=== PATIENT | female | born 1945 | race Caucasian/White ===

== ENCOUNTER 2016-08-13 11:21 | Outpatient (CLI) ==
[2013-06-19 03:26] VITALS: BMI 24.9
--- NOTE | 2016-08-13 12:54 | DI ---
EXAM: CHEST FRONTAL AND LATERAL VIEWS HISTORY: Shortness of breath. COMPARISON: 08/08/2009 FINDINGS: In Heart size and mediastinal contour remain within normal limits. No acute infiltrates . Normal vascularity with no pleural fluid or pneumothorax. The bony thorax has no acute finding. S tabilization hardware lower cervical spine. IMPRESSION: No acute process.
--- NOTE | 2016-08-15 08:53 | MAMMO ---
EXAM: Digital screening mammogram HISTORY: Screening COMPARISON: 06/28/2015 FINDINGS: Digital MLO and CC views of the right and left breast were performed. There are scatter ed fibroglandular densities. Bilateral benign scattered calcifications. There is no evidence for mas s, asymmetry, distortion, or suspicious calcifications in either breast. IMPRESSION: 1. No evidence of malignancy in the right or left breast. 2. Annual screening mammogram is recommended in one year. BIRADS category 2, benign
== END 2016-08-13 11:22 | disposition home or self-care (01) ==
LOC: RAD 11:21
PROVIDERS: ATTEND Family Medicine
DX: Z12.31 Encounter for screening mammogram for malignant neoplasm of breast (principal); R06.02 Shortness of breath; E89.40 Asymptomatic postprocedural ovarian failure

== ENCOUNTER 2016-10-08 11:22 | Day surgery (SDC) | payer OTHER ==
[2013-06-19 03:26] VITALS: BMI 24.9
[2016-10-08] MEDS ORDERED: VERSED ONE (12:35)
[2016-10-08] MEDS ORDERED: DIPRIVAN 20 ML VIAL IVP ONE (12:35)
[2016-10-08] MEDS ORDERED: LIDOCAINE HCL 2% LUER-JET ONE (12:35)
[2016-10-08 15:07] VITALS: TEMP 97.6
--- NOTE | 2016-10-10 10:03 | OP ---
PROCEDURE: EGD (ESOPHAGOGASTRODUODENOSCOPY) . ENDOSCOPIST: Ivan WANG M.D. INDICATION: NAUSEA AND VOMITING INSTRUMENT: [id number]. MEDICATION: PER ANESTHESIA. PROCEDURE: The patient was positioned for endoscopy. The oropharynx was sprayed with Cetacaine spray and the endoscope was advanced through the bite block into the esophagus and from there advanced to the duodenum. The duodenum was normal. The pylorus was patent. The antrum is normal. Retroflex exam reveals a small hiatus hernia. The esophagus is very torturous in the distal segment. No obvious obstructing lesion. The patient tolerated the procedure without immediate complication. PLAN: 1. Would like to get a Barium Esophagram to further evaluate her symptoms 2. Would also like to get a Gastric Emptying Study 3. We will see her back in the office in four weeks. CC: Dr. Baron SOL
[2016-10-10 11:34] VITALS: BP 99/62
== END 2016-10-08 13:55 | disposition home or self-care (01) ==
LOC: SURG 11:22
PROVIDERS: ATTEND Internal Medicine Gastroenterology
DX: R11.2 Nausea with vomiting, unspecified (principal); K44.9 Diaphragmatic hernia without obstruction or gangrene; K22.8 Other specified diseases of esophagus; E11.9 Type 2 diabetes mellitus without complications
CPT/HCPCS: 82962

== ENCOUNTER 2016-10-10 09:00 | Outpatient (CLI) ==
[2013-06-19 03:26] VITALS: BMI 24.9
--- NOTE | 2016-10-10 13:43 | NM ---
EXAM: Gastric emptying study HISTORY: Vomiting COMPARISON: None. TECHNIQUE: Patient was given 2.1 mCi of technetium 99m sulfur colloid per oral mixed in scrambled eg gs. Anterior and posterior scintigraphic images of the left upper abdomen were obtained up to 4 claudia rs interval. FINDINGS: Gastric emptying half-time is 120 minutes. This is very slightly prolonged. At 1 hour, 2 hours, 3 hours and 4 hours interval, patient has emptied approximately 30%, 50%, 70% an d 87% of the gastric contents respectively. IMPRESSION: Very slightly delayed gastric emptying is identified in this patient.
== END 2016-10-10 09:01 | disposition home or self-care (01) ==
LOC: RAD 09:00
PROVIDERS: ATTEND Internal Medicine Gastroenterology
DX: R11.2 Nausea with vomiting, unspecified (principal)

== ENCOUNTER 2016-10-12 09:07 | Outpatient (CLI) ==
[2013-06-19 03:26] VITALS: BMI 24.9
--- NOTE | 2016-10-12 10:23 | DI ---
EXAM: Double contrast upper GI History: Nausea and vomiting. Technique: Patient was given gas crystals. Patient was then given oral barium and multiple spot fi lms of the esophagus, stomach and duodenum were obtained in multiple projections. Findings: A normal course and caliber of the esophagus. No esophageal filling defects or mucosal lesions. Te rtiary waves were seen within the more distal esophagus. A mild to moderate degree of esophageal sp asm was seen within the mid to distal esophagus. The gastroesophageal junction is patent. No hiatal hernia. No gastroesophageal reflux. The course and caliber of the stomach is within normal limits. No ulcerations or filling defects se en. The course and caliber of the duodenum is within normal limits. No wall thickening of the duod enum and no ulcerations. Impression: Mild to moderate esophageal spasm. Examination was otherwise unremarkable.
== END 2016-10-12 09:08 | disposition home or self-care (01) ==
LOC: RAD 09:07
PROVIDERS: ATTEND Internal Medicine Gastroenterology
DX: R11.2 Nausea with vomiting, unspecified (principal)

== ENCOUNTER 2017-04-10 07:00 | Day surgery (SDC) | payer OTHER ==
[2013-06-19 03:26] VITALS: BMI 24.9
[2017-04-10] MEDS: CYCLOGYL 2% OPTH OP PRN ×3 (07:25→07:35)
[2017-04-10] MEDS ORDERED: LIDOCAINE 1%/PHENYLEPHRINE 1.5% BSS (SURGERY) INTRAOCULA ONE (08:28)
[2017-04-10] MEDS ORDERED: OMIDRIA 1-0.3% VIAL IO ONE (08:29)
[2017-04-10] MEDS ORDERED: [UNRECOGNIZED DRUG - OTHER] IO ONE (08:29)
[2017-04-10] MEDS ORDERED: SUBLIMAZE ONE (08:30)
[2017-04-10] MEDS ORDERED: DIPRIVAN 20 ML VIAL IVP ONE (08:30)
[2017-04-10] MEDS ORDERED: VERSED ONE (08:30)
[2017-04-10 13:39] VITALS: BP 104/67; TEMP 98
[2017-04-10] MEDS ORDERED: ZOFRAN 4 MG/2 ML IVP ONE (13:41)
[2017-04-10] MEDS ORDERED: TETRACAINE 0.5% UNIT-DOSE OP PRN (13:41)
[2017-04-10] MEDS ORDERED: BETADINE OPTH PREP OP PRN (13:41)
== END 2017-04-10 09:10 | disposition home or self-care (01) ==
LOC: SURG 07:00
PROVIDERS: ATTEND Ophthalmology
DX: H25.812 Combined forms of age-related cataract, left eye (principal); E11.9 Type 2 diabetes mellitus without complications

== ENCOUNTER 2017-09-11 12:40 | Outpatient (CLI) ==
[2013-06-19 03:26] VITALS: BMI 24.9
== END 2017-09-11 12:41 | disposition home or self-care (01) ==
LOC: RAD 12:40
PROVIDERS: ATTEND Family Medicine
DX: Z12.31 Encounter for screening mammogram for malignant neoplasm of breast (principal)
CPT/HCPCS: 77067

== ENCOUNTER 2018-09-08 14:25 | Observation (INO) | payer OTHER ==
[2018-09-08 15:30] VITALS: BMI 26.6
[2018-09-08] MEDS ORDERED: HUMULIN R SUBCUT PRN (15:56)
[2018-09-08] MEDS ORDERED: SODIUM CHLORIDE 500 ML IV SCH (16:00)
[2018-09-08] MEDS: SODIUM CHLORIDE 1,000 ML IV SCH ×2 (16:08→20:26)
--- NOTE | 2018-09-08 16:40 | DI ---
EXAM: Two views of the chest. History: Cough. Comparison: Chest radiograph 09/10/2016 Findings: Heart size is within normal limits. No focal consolidation. No appreciable pleural fluid and no pneumothorax. No acute osseous abnormalities. Postsurgical changes of the cervical spine. Impression: No acute cardiopulmonary process. No change compared to the prior study.
[2018-09-08] MEDS ORDERED: COLESTIPOL HCL 2 GM PO SCH (21:30)
[2018-09-08] MEDS ORDERED: TYLENOL PO PRN (21:44)
[2018-09-08] MEDS ORDERED: ROCEPHIN 1 GM in SODIUM CHLORIDE 50 ML IV SCH (22:00)
[2018-09-08] MEDS ORDERED: TAMIFLU PO SCH (22:00)
[2018-09-08] MEDS ORDERED: ROCEPHIN ONE (22:06)
[2018-09-08] MEDS: INDERAL PO SCH (22:14)
[2018-09-08] MEDS: LANTUS SUBCUT SCH (22:15)
[2018-09-09] MEDS ORDERED: ROBITUSSIN SUGAR-FREE PO STA (02:37)
[2018-09-09] MEDS: SODIUM CHLORIDE 1,000 ML IV SCH ×3 (03:10→06:27)
[2018-09-09] MEDS ORDERED: NON-FORMULARY MEDICATION (Pantoprazole Sodium [Protonix] 40 MG) PO SCH (06:30)
[2018-09-09] MEDS: COLESTIPOL HCL 2 GM PO SCH ×2 (08:00→21:01)
[2018-09-09] MEDS: INDERAL PO SCH ×3 (09:04→21:02)
[2018-09-09] MEDS: TAMIFLU PO SCH ×2 (09:05→21:02)
[2018-09-09] MEDS: ESTROGENS CONJUGATED 0.45 MG PO SCH (09:07)
[2018-09-09] MEDS: BUPROPION HCL 200 MG PO SCH (09:08)
[2018-09-09] MEDS ORDERED: SODIUM CHLORIDE 1,000 ML IV SCH (10:00)
[2018-09-09] MEDS: DUONEB NEB SCH ×3 (10:21→21:55)
[2018-09-09] MEDS: ROBITUSSIN DM SYRUP PO PRN ×2 (16:45→21:01)
[2018-09-09] MEDS ORDERED: ROCEPHIN 1 GM in SODIUM CHLORIDE 50 ML IV SCH (21:00)
[2018-09-09] MEDS: LANTUS SUBCUT SCH (21:02)
[2018-09-10] MEDS: DUONEB NEB SCH ×3 (04:34→14:20)
[2018-09-10] MEDS ORDERED: NON-FORMULARY MEDICATION (Pantoprazole Sodium [Protonix] 40 MG) PO SCH (06:30)
[2018-09-10] MEDS: ESTROGENS CONJUGATED 0.45 MG PO SCH (09:39)
[2018-09-10] MEDS: TAMIFLU PO SCH (09:40)
[2018-09-10] MEDS: INDERAL PO SCH ×2 (09:40→14:08)
[2018-09-10] MEDS: COLESTIPOL HCL 2 GM PO SCH (09:40)
[2018-09-10] MEDS: BUPROPION HCL 200 MG PO SCH (09:43)
--- NOTE | 2018-09-10 13:23 | DI ---
EXAM: Two views of the chest. History: Cough. Comparison: Chest radiograph 09/08/2018 Findings: Heart size is normal. Bibasilar subsegmental atelectasis. No appreciable pleural fluid a nd no pneumothorax. No acute osseous abnormalities. Impression: Bibasilar subsegmental atelectasis
[2018-09-10 14:23] VITALS: BP 107/59; TEMP 97.4
== END 2018-09-10 18:30 | disposition home or self-care (01) ==
LOC: MEDSURG B 14:25
PROVIDERS: ADMIT Family Medicine; ATTEND Family Medicine
DX: R53.1 Weakness (principal); R09.81 Nasal congestion; J02.9 Acute pharyngitis, unspecified; R05 Cough; I95.9 Hypotension, unspecified; N18.9 Chronic kidney disease, unspecified; R11.0 Nausea; J11.1 Influenza due to unidentified influenza virus with other respiratory manifestations; J01.90 Acute sinusitis, unspecified; J40 Bronchitis, not specified as acute or chronic
CPT/HCPCS: 36415; 80053; 81001; 82962; 85025; 87086; 87502; 87651; 94640; 97802

== ENCOUNTER 2018-10-08 12:47 | Outpatient (CLI) | payer OTHER ==
--- NOTE | 2018-10-10 12:15 | MAMMO ---
EXAM: Digital screening mammogram with tomosynthesis HISTORY: Screening COMPARISON: 09/11/2017 FINDINGS: Digital MLO and CC views of the right and left breast were performed. Tomosynthesis was performed. Computer aided detection utilized. There are scattered fibroglandular densities. Benign bilateral calcifications. There is no evidence for mass, asymmetry, distortion, or suspicious calci fications in either breast. IMPRESSION: 1. No evidence of malignancy in the right or left breast. 2. Annual screening mammogram is recommended in one year. BIRADS category 2, benign
== END 2018-10-08 12:48 | disposition home or self-care (01) ==
LOC: RAD 12:47
PROVIDERS: ATTEND Family Medicine
DX: Z12.31 Encounter for screening mammogram for malignant neoplasm of breast (principal)